=== PATIENT | female | born 1935 | race Caucasian/White ===

== ENCOUNTER 2017-08-10 18:31 | Inpatient (IN) ==
[2017-08-11] MEDS ORDERED: Naloxone 0.4 MG/ML INJ IVP PRN ×3 (01:15→21:48)
[2017-08-11] MEDS ORDERED: OXYCODONE Oral CONC 10 MG/0.5 ML ORAL.SYG SL PRN (01:15)
--- NOTE | 2017-08-11 01:36 | Internal Med History&Physical ---
Date of Encounter: 08/11/17 Time of Encounter: 00:30 Assessment and Plan (1) Left displaced femoral neck fracture Current visit: Yes Status: Acute Patient has left side femoral neck fracture due to mechanical fall. - Place patient on nothing by mouth, IV fluid - Pain management - Consul orthopedic for possible surgery (2) DVT prophylaxis Current visit: Yes Status: Acute Place patient on feet pump. Hold anticoagulation at this point for possible surgery tomorrow. Will start anticoagulation after surgery. Internal Medicine - H&P: HPI Chief complaint: Fall and left hip pain Admitted From: Home Plans for Post Hospital Care: Transfer Inp Rehab Fac History of present illness: Ms. Matthews is a 82 year old female with history of osteoporosis, transferred from [facility] emergency room for fall and left hip pain. Patient said this afternoon when she gets out of the car, she fell and had the left hip injury. Patient denies loss of consciousness. Patient denies head injury or other parts of the body pain. Patient was sent to ER and CT left hip shows left femoral neck fracture. Patient was given pain medication and transferred to our hospital for further management. Past Med Surg Social Fam HX - Past Medical History Medical history: no medical history - Past Surgical History Surgical History: hysterectomy, thyroidectomy - Social History Smoking Status: Never smoker Smokeless Tobacco Status: No Alcohol use: none Drug use: none - Family History Mother Adopted: Black: Zenia Mccarthy Age: 59 Family Member Ethnicity: Non- Living Status: Age at : 59 Cause of : Stroke Hx Family Respiratory Disorders: Yes (emphysema) Father Adopted: Black: Lucas Mccarthy Age: 77 Family Member Ethnicity: Non- Living Status: Age at : 77 Cause of : Heart attack Hx Family Cardiac Disorders: Yes (heart disease, pacemaker placement) Internal Medicine - H&P: Meds Butalbital/Acetaminophen [Butalbital-Acetaminophn 50-325] 1 tab PO Q12HR PRN [History] Furosemide [Lasix] 40 mg PO QAM PRN 08/11/17 [History] Levothyroxine [Synthroid] 50 mg PO 0630 08/11/17 [History] Memantine [Namenda] 28 mg PO 0900 08/11/17 [History] Omeprazole [PriLOSEC] 40 mg PO DAILY 08/11/17 [History] Primidone [Mysoline] 50 mg PO 0900 08/11/17 [History] 3 Allergy/AdvReac Type Severity Reaction Status Date / Time No Known Allergies Allergy Verified 08/11/17 01:18 All Systems PM: A 10-system review of systems was performed and is negative for pertinent findings except as documented above in the HPI. - Constitutional Vitals: Temp Pulse Resp BP Pulse Ox 98.3 F 75 16 115/72 98 08/10/17 23:53 08/10/17 23:53 08/10/17 23:53 08/10/17 23:53 08/10/17 23:53 General appearance: Present: A&O X 3, pleasant, no acute distress, answers questions appropriately - Head Head exam: Present: atraumatic, normocephalic - Eye Eye exam: Present: PERRL, conjuntiva pink, sclera anicteric Pupils: Present: PERRL - Neck Neck exam general surgery: Present: supple, trachea midline. Absent: lymphadenopathy - Respiratory Respiratory exam: Present: CTAB. Absent: accessory muscle use, rales, rhonchi, wheezes - Cardiovascular Cardiovascular exam: Present: RRR, +S1, +S2. Absent: diastolic murmur, gallop, rubs, systolic murmur - GI/Abdominal GI/Abdominal exam: Present: normal bowel sounds, soft, no peritoneal signs. Absent: distended, tenderness - Extremities Exam Extremities exam: Present: warm, radial pulses palpable and symmetrical. Absent : calf tenderness, cyanotic, pedal edema Additional comments: Left hip ROM limited due to pain. Other 3 limbs move well. - Neurological Exam Neurological exam: Present: CN II-XII intact, oriented X3, no focal deficits. Absent: pronater drift, facial droop, speech deficit - Skin Skin exam: Present: dry, intact Internal Med - H&P Results - EKG Data -: EKG Interpreted by Myself EKG shows normal: sinus rhythm Rate: normal
[2017-08-11] MEDS: 0.9 % Sodium Chloride 1,000 ML IVC SCH ×2 (01:59→15:21)
[2017-08-11 05:47] LABS: Basophils % 0.3 %; Eosinophils # 0.1 K/mcL (0.0-0.6); Hematocrit 37.2 % (35.3-44.9); Hemoglobin 11.9 g/dL (11.5-15.4); Immature Granulocytes % 0.3 % (0-4); Lymphocytes # 1.1 K/mcL (0.6-4.6); Lymphocytes % 14.7 %; Mean Corpuscular Hemoglobin 30.6 pg (28.0-33.3); Mean Corpuscular Volume 95.6 fL (83.0-100.0); Mean Platelet Volume 8.8 fL (9.4-12.4); Monocytes # 0.8 K/mcL (0.0-1.3); Neutrophils # 5.7 K/mcL (1.6-8.9); Platelet Count 239 K/mcL (140-400); Red Blood Count 3.89 M/mcL (3.82-4.97); Red Cell Distribution Width 14.3 % (11.5-14.5); Segmented Neutrophils % 73.7 %
[2017-08-11 05:51] LABS: INR 1.1; Prothrombin Time 11.4 Seconds (9.4-12.1)
[2017-08-11 05:55] LABS: BUN/Creatinine Ratio 16 (6-26); Blood Urea Nitrogen 15 mg/dL (8-23); Calcium 9.2 mg/dL (8.6-10.3); Carbon Dioxide 27 mEq/L (23-29); Chloride 103 mEq/L (98-107); Glucose 90 mg/dL (70-105); Osmolality,Calculated 282 (280-300); Potassium 3.9 mEq/L (3.5-5.1); Sodium 136 mEq/L (136-145); eGFR For African Americans > 60 (> 60); eGFR For Non-African Americans 59 (> 60)
--- NOTE | 2017-08-11 07:54 | Orthopedic Consult Note ---
Date of Encounter: 08/11/17 Time of Encounter: 07:51 Assessment and Plan (1) Left displaced femoral neck fracture Current Visit: Yes Status: Acute I discussed the diagnosis in detail the patient. She has a left displaced femoral neck fracture. I did discuss treatment options and recommended left hip hemiarthroplasty in order to realign and stabilize the hip to provide pain control and to help facilitate nursing care. The risks discussed included but were not limited to stiffness, bleeding, infection, blood clots, damage to neurovascular structures, tendons, ligaments, and bone. Also discussed was the risk of continued symptoms and possible need for further procedures. I did discuss the anesthesia risks including stroke, heart attack, and . I did discuss the risks of prosthetic infection, dislocation, and periprosthetic fracture. I discussed the reasonable, foreseeable postoperative course with the patient. She did wish to proceed and consent was obtained. History of Present Illness HPI: Ms. Matthews is a 82 year old female admitted to the hospitalist after being transferred from [facility]. She has a left displaced femoral neck fracture after a non-syncopal fall. This is an isolated injury. She complains of pain in the left groin. She denies any headache, neck pain, chest pain, abdominal pain, bilateral upper extremity pain, and right lower extremity pain. No numbness or tingling. No other associated signs or symptoms. Pain is worse with any movement of the left leg and better with rest. No other modifying factors. Past Med Surg Social Fam HX - Past Medical History Medical history: no medical history - Past Surgical History Surgical History: hysterectomy, thyroidectomy - Social History Smoking Status: Never smoker Smokeless Tobacco Status: No Alcohol use: none Drug use: none - Family History Mother Adopted: [place]: Zenia Mccarthy Age: 59 Family Member Ethnicity: Non- Living Status: Age at : 59 Cause of : Stroke Hx Family Respiratory Disorders: Yes (emphysema) Father Adopted: [place]: Lucas Mccarthy Age: 77 Family Member Ethnicity: Non- Living Status: Age at : 77 Cause of : Heart attack Hx Family Cardiac Disorders: Yes (heart disease, pacemaker placement) Medications and Allergies Butalbital/Acetaminophen [Butalbital-Acetaminophn 50-325] 1 tab PO Q12HR PRN [History] Furosemide [Lasix] 40 mg PO QAM PRN 08/11/17 [History] Levothyroxine [Synthroid] 50 mg PO 0630 08/11/17 [History] Memantine [Namenda] 28 mg PO 0900 08/11/17 [History] Omeprazole [PriLOSEC] 40 mg PO DAILY 08/11/17 [History] Primidone [Mysoline] 50 mg PO 0900 08/11/17 [History] 3 Allergy/AdvReac Type Severity Reaction Status Date / Time No Known Allergies Allergy Verified 08/11/17 01:18 All Systems Reviewed: The remainder of the systems were reviewed and are negative Physical Exam - Constitutional Vitals: Temp Pulse Resp BP Pulse Ox 100.0 F H 79 18 119/76 99 08/11/17 07:27 08/11/17 07:27 08/11/17 07:27 08/11/17 07:27 08/11/17 07:27 Constitutional -Vitals reviewed -The patient is well developed and well nourished. -Mood is pleasant. -The patient is well groomed. Psychiatric -The patient is fully alert and oriented x 3. Respiratory: -Respiratory effort normal Abdomen: -Soft abdomen -Non tender -Non distended: Left upper extremity: -No deformities. The overlying skin is intact. No obvious signs of acute trauma. -No tenderness to palpation throughout. -No significant pain with passive motion of the shoulder, elbow, wrist, and fingers within the limits of the bed. -Able to make an "OK" sign, cross the index and long fingers, and extend the thumb. -Sensation grossly intact to light touch throughout the median, radial, and ulnar distributions. -Radial pulse is present; Fingers have good capillary refill. Right upper extremity: -No deformities. The overlying skin is intact. No obvious signs of acute trauma. -No tenderness to palpation throughout. -No significant pain with passive motion of the shoulder, elbow, wrist, and fingers within the limits of the bed. -Able to make an "OK" sign, cross the index and long fingers, and extend the thumb. -Sensation grossly intact to light touch throughout the median, radial, and ulnar distributions. -Radial pulse is present; Fingers have good capillary refill. Left lower extremity: -The extremity is shortened and externally rotated. The overlying skin is intact. -There is tenderness in the groin region as well as the proximal lateral thigh. -I did not range the hip due to the known fracture. -No tenderness along the distal thigh, leg, ankle, foot, or toes. -Able to dorsiflex and plantarflex the ankle and toes. -Sensation is grossly intact to light touch throughout the sural, saphenous, superficial peroneal, and deep peroneal distributions. -Toes have good capillary refill. Right lower extremity: -No deformities. The overlying skin is intact. No obvious signs of acute trauma. -No tenderness to palpation throughout. -No pain with passive motion of the hip, knee, ankle, and toes within the limits of the bed. -No pain with axial loading of the thigh. -Able to dorsiflex and plantarflex the ankle and toes. -Sensation is grossly intact to light touch throughout the sural, saphenous, superficial peroneal, and deep peroneal distributions. -Toes have good capillary refill. Diagnostic Imaging: I did personally review and interpret the CT scan of the left femur which shows a displaced femoral neck fracture Results - Labs Result Diagrams: 08/11/17 04:46 08/11/17 04:46 Labs: Abnormal lab results MPV 8.8 fL (9.4-12.4) L 08/11/17 04:46 Est GFR (Non-Af Amer) 59 (> 60) L 08/11/17 04:46 H & H 08/11/17 Range/Units 04:46 Hgb 11.9 (11.5-15.4) g/dL Hct 37.2 (35.3-44.9) % All other labs normal. Consult Discharge Plan - Plan Referrals: Donovan Coronado MD [Primary Care Provider] -
[2017-08-11] MEDS ORDERED: Primidone 50 MG TABLET PO SCH (09:00)
[2017-08-11] MEDS: OXYCODONE Oral CONC 10 MG/0.5 ML ORAL.SYG SL PRN ×2 (09:34→13:27)
[2017-08-11] MEDS ORDERED: Acetaminophen/Butalbital/CaffeineTABLET PO PRN (12:51)
[2017-08-11] MEDS ORDERED: Furosemide 40 MG TABLET PO PRN (12:51)
--- NOTE | 2017-08-11 13:44 | Internal Med Progress Note ---
Date of Encounter: 08/11/17 Time of Encounter: 13:41 - Assessment and plan (1) Left displaced femoral neck fracture Current Visit: Yes Status: Acute Assessment and plan: - Left femoral neck fracture, ortho planned left hemiarthroplasty this evening. - Hx of osteoporosis, finished one course of Boniva, currently not on Vitd/ calcium replacement. will check Vit d level, May need DEXA scan as outpt. - pain control, DVT prophylaxis. - Time Spent With Patient 25 - 35 minutes - Subjective Interval history: Pt seen in the room. She has no complaints. - Constitutional Vitals: Temp Pulse Resp BP Pulse Ox 99.1 F 77 20 146/69 98 08/11/17 12:47 08/11/17 12:47 08/11/17 12:47 08/11/17 12:47 08/11/17 12:47 General appearance: Present: A&O X 3, pleasant, no acute distress, answers questions appropriately Exam: PHYSICAL EXAMINATION: GENERAL APPEARANCE: The patient is alert, oriented and in no acute distress. HEENT: Head is normocephalic. The sinuses are nontender. Pupils are equal and reactive. The nares are patent. Oropharynx clear without lesions. NECK: Supple without lymphadenopathy. HEART: Regular rate and rhythm. LUNGS: No crackles or wheezes are heard. ABDOMEN: Soft, nontender, nondistended with good bowel sounds heard. Inguinal area is normal. EXTREMITIES: left leg pain to movement.. NEUROLOGICAL: Gross nonfocal. SKIN: Warm and dry without any rash. Internal Medicine: Result - Labs CBC & Chem 7: 08/11/17 04:46 08/11/17 04:46 Labs: Short CBC 08/11/17 Range/Units 04:46 WBC 7.8 (4.3-11.1) K/mcL Hgb 11.9 (11.5-15.4) g/dL Hct 37.2 (35.3-44.9) % Plt Count 239 (140-400) K/mcL Neutrophils # 5.7 (1.6-8.9) K/mcL BMP 08/11/17 04:46 Sodium 136 Potassium 3.9 Chloride 103 Carbon Dioxide 27 BUN 15 Creatinine 0.91 Glucose 90 Calcium 9.2 - ABG Interpretation ABG results: PT/INR, D-dimer PT 11.4 Seconds (9.4-12.1) 08/11/17 04:46 - VTE Documentation of Mechanical Device: Venous foot pump, device Consult Discharge Plan - Plan Referrals: Donovan Coronado MD [Primary Care Provider] -
[2017-08-11] MEDS ORDERED: *HR* Rocuronium Bromide 50 MG/5 ML VIAL ONE (20:13)
[2017-08-11] MEDS ORDERED: Lidocaine -MPF 2% 2 ML VIAL ONE (20:13)
[2017-08-11] MEDS ORDERED: Lidocaine -MPF 4% 5 ML AMPUL ONE (20:13)
[2017-08-11] MEDS ORDERED: *HR* Propofol 200 MG/20 ML VIAL IVP ONE (20:14)
[2017-08-11] MEDS ORDERED: *HR* FentaNYL (PF) 100 MCG/2 ML VIAL ONE (20:14)
--- NOTE | 2017-08-11 20:22 | Event Note ---
Date of Encounter: 08/11/17 Time of Encounter: 20:00 Pt's Daughter Karina Morgan (also POA) expressed pt doesn't want CPR if cardiac arrest happens. Discussed with pt and her daughter Ms Karina Morgan again and confirmed that is pt's wish. DNR CCA placed.
--- NOTE | 2017-08-11 21:28 | Anesthesia Evaluation PreOp ---
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 Any Significant HX Other Medical History: Thyroid (hypo), GERD Anesthesia History: No Prior Anesthetic Complications, Past Anesthesia ( thyroidectom, hysterectomy) Alcohol Use: none Drug use: none Medications and Allergies Butalbital/Acetaminophen [Butalbital-Acetaminophn 50-325] 1 tab PO Q12HR PRN [History] Escitalopram [Lexapro] 10 mg PO DAILY 08/11/17 [History] Furosemide [Lasix] 40 mg PO QAM PRN 08/11/17 [History] Levothyroxine [Synthroid] 50 mcg PO 0630 08/11/17 [History] Memantine [Namenda] 10 mg PO BID 08/11/17 [History] Omeprazole [PriLOSEC] 40 mg PO DAILY 08/11/17 [History] Primidone [Mysoline] 50 mg PO 0900 08/11/17 [History] 3 Allergy/AdvReac Type Severity Reaction Status Date / Time No Known Allergies Allergy Verified 08/11/17 01:18 - Meds/Allergy Pre-op Review Medications Reviewed: Yes Allergies Reviewed: Yes Beta Blockers on Current Med List: No Anesthesia Results - Labs 08/11/17 04:46 08/11/17 04:46 - Imaging EKG: image reviewed (SR) Anesthesia Exam Vital Signs/O2 Sat, Most Current Temp Pulse Resp BP Pulse Ox 99.3 F 87 14 158/78 99 08/11/17 20:14 08/11/17 20:14 08/11/17 20:14 08/11/17 20:14 08/11/17 20:14 Height: 1.67m Weight: 66kg NPO (# of Hours): >8 - HEENT Pupil (Motor): Pupils equal, EOMI Mallampati: II Teeth: Missing Denture Type: Upper: Partial Oral Opening: Greater than 3 - PARTICLE BOARD SUPERVISOR LOC: Oriented PARTICLE BOARD SUPERVISOR Motor: Normal RUE, Normal LUE, Normal RLE, Normal LLE, Normal Face PARTICLE BOARD SUPERVISOR Sensory: Normal: RUE, LUE, RLE, LLE, Face - Cardiac Rhythm: Regular - Pulmonary Breath Sounds: bilateral Clear Respiratory Effort: Symmetrical Anesthesia Assess/Plan ASA Score: 2 Modified Cleveland Scale for Level of Consciousness: Cooperative, oriented, and tranquil Anesthetic Plan: General (r/b/a discussed, questions answered including DNR-CC arrest status, pt will like to avoid having chest compressions if possible in case of cardiac arrest) Monitoring Plan: Standard Monitors Recovery Plan: PACU
[2017-08-11] MEDS ORDERED: Acetaminophen IV 1,000 MG/100 ML INFUS..BTL ONE (21:45)
[2017-08-11] MEDS ORDERED: *HR* OxyCODONE Immed Rel 5 MG TABLET PO PRN (21:48)
[2017-08-11] MEDS ORDERED: Ondansetron 4 MG/2 ML VIAL IVP ONE (21:48)
[2017-08-11] MEDS ORDERED: Ringers Solution, Lactated 1,000 ML IVC SCH (22:00)
[2017-08-11] MEDS ORDERED: *HR* PHENYLEPHRINE 1,000 MCG/10 ML SYRINGE IVP ONE (22:25)
[2017-08-11] MEDS ORDERED: Dexamethasone 4 MG/ML VIAL ONE (22:26)
[2017-08-11] MEDS ORDERED: Ondansetron 4 MG/2 ML VIAL ONE (22:26)
[2017-08-11] MEDS ORDERED: Neostigmine Methylsulfate 3 MG/3 ML SYRINGE ONE (22:27)
--- NOTE | 2017-08-12 00:05 | Operative Note ---
Date of procedure: 08/12/17 Pre-op diagnosis: Left hip femoral neck fracture, displaced Post-op diagnosis: same Procedure: Left hip hemiarthroplasty Implants: Biomet echo system Anesthesia: GETA Surgeon: Shen Qureshi Was there an kindergarten assistant present: No Estimated blood loss (cc): 200 Specimen: Sent to pathology Condition: stable Disposition: PACU Procedure in Detail: The patient received IV antibiotics in the holding area. She was brought to the operating room, sign in was performed. The patient underwent general anesthesia on the hospital bed. She was then transferred to the OR table in supine position. The patient was positioned in the right lateral decubitus position, supported by pelvic supports. Bony prominences of the right lower extremity were well padded. The left lower extremity was then prepped and draped in usual sterile fashion. A timeout was performed. The level of the greater trochanter was palpated, a 10-12 cm curvilinear posterior incision was made, followed by Bovie dissection. The hip abductor was sharply split in line with its fibers with a curved Roman scissors, incising the fascia over the gluteus prabhakar also. The Charnley retractors were then positioned, making sure all not to go too deeply, to protect the sciatic nerve. The bursa over the greater trochanter was excised with Bovie electrocautery. The left hip was then internally rotated, putting the short external rotators on stretch. These were taken down from the insertion point with the Bovie cautery, starting from less of a trochanter and going approximately to the femoral neck. The capsule along the posterior femoral neck and head was then T' ed, giving exposure to the fractured femoral head/neck. The head was then attempted to be removed with a power corkscrew. I had difficulty removing the head. The head started fragmenting. Eventually a small skid was placed in the acetabulum, pushing the head followed and removing it. The head was measured and a size 45 mm diameter was chosen. The acetabulum was washed out of any bone fragments, and a trial head was placed giving a good fit. Next, the exposed fractured femoral neck was cleaned up with a rongeur, a spreader box operator was then used to remove the lateral bone. The canal finder was then inserted. We then started broaching with a press-fit broaches from the [employer] echo tray. Starting with a press-fit 7, and moving up to a press-fit 8, keeping the appropriate anteversion. I continued broaching up to a press-fit 11 The trial stem was well fixed with no toggling. The broach was then removed. The canal was irrigated out and suctioned. The [employer] Echo press-fit stem was then opened, using a lateralized 130 degree neck angle and a size 11 pressfit stem, the implant was tapped in place, making sure to keep the correct anteversion. Once well positioned, we trialed with a 45 mm diameter trial head, and a neutral neck length. Stability was checked along with leg length, it was felt that the leg length was slightly short, and not very stable. I then trialed with a +3 mm neck length. The leg lengths felt equal, the patient had good extension of the left lower extremity, is able to flex the hip, adduct, and internally rotated up to 60 degrees before the hip started subluxing out. The trial components removed. The acetabulum was copiously irrigated with normal saline once again making sure it was well cleaned out. Next the 45 mm unipolar head was opened with a +3 mm neck length. This assembled and tapped in place. The hip was reduced, and stability was checked once again. We had good stability. The capsule was then closed with # 2 FiberWire figure of 8 sutures. The leg was placed on Roman stand, and the short external rotators were reattached to the bone using the FiberWire. The tensor fascia along with the gluteus fascia was closed with FiberWire [id number] sutures and a #1 Vicryl running suture proximally. Once again irrigating the wound with pulse lavage. The deep fat layer was closed with 0 Vicryl, subcutaneous tissues with 2-0 Vicryl simple sutures, and finally the skin was closed with lobo. Sterile dressings were applied. A hip abduction wedge was in place between the patient' s legs. She was then rolled over into supine position and transferred back onto the hospital bed where she was extubated and taken to the recovery room in stable condition.
--- NOTE | 2017-08-12 00:38 | Anesthesia Evaluation Post Op ---
Date of Encounter: 08/12/17 Time of Encounter: 00:38 - Vital Signs Vital Signs: Vital Signs/O2 Sat, Most Current Temp Pulse Resp BP Pulse Ox 98.4 F 85 16 116/65 98 08/12/17 00:14 08/12/17 00:34 08/12/17 00:34 08/12/17 00:34 08/12/17 00:34 - Lungs Lungs: Clear Ascult./Percussion - Airway Airway: Non-obstructed - Cardiovascular Regular Rate - Mental Status Mental Status: Alert & Oriented, Answers Appropriately - Pain Pain Scale: 0 Pain Scale used: Numeric (1 - 10) - Nausea Vomiting Nausea Vomiting: Not Present - Hydration Hydration: Ice chips, Patel catheter - Discharge PostOp Status: Transfer Patient to floor
[2017-08-12] MEDS ORDERED: Ondansetron 4 MG/2 ML VIAL IVP PRN (01:10)
[2017-08-12] MEDS ORDERED: Acetaminophen/Butalbital/CaffeineTABLET PO PRN (01:10)
[2017-08-12] MEDS ORDERED: Furosemide 40 MG TABLET PO PRN (01:10)
[2017-08-12] MEDS ORDERED: Sennosides 8.6 MG TABLET PO PRN (01:10)
[2017-08-12] MEDS ORDERED: MOM Conc 10 ML UD.LIQ PO PRN (01:10)
[2017-08-12] MEDS ORDERED: 0.9 % Sodium Chloride 1,000 ML IVC SCH (01:10)
[2017-08-12] MEDS ORDERED: Temazepam 15 MG CAPSULE PO PRN (01:10)
[2017-08-12] MEDS: CeFAZolin Premix DUPLEX 2,000 MG/50 ML BAG IVPB SCH ×2 (01:55→10:11)
[2017-08-12 06:23] LABS: Hematocrit 32.8 % (35.3-44.9); Hemoglobin 10.5 g/dL (11.5-15.4); Mean Corpuscular Volume 96.8 fL (83.0-100.0); Platelet Count 192 K/mcL (140-400); Red Blood Count 3.39 M/mcL (3.82-4.97); Red Cell Distribution Width 14.2 % (11.5-14.5)
[2017-08-12 06:35] LABS: BUN/Creatinine Ratio 17 (6-26); Blood Urea Nitrogen 14 mg/dL (8-23); Calcium 8.3 mg/dL (8.6-10.3); Carbon Dioxide 25 mEq/L (23-29); Chloride 106 mEq/L (98-107); Glucose 124 mg/dL (70-105); Osmolality,Calculated 286 (280-300); Potassium 4.3 mEq/L (3.5-5.1); Sodium 137 mEq/L (136-145); eGFR For African Americans > 60 (> 60); eGFR For Non-African Americans > 60 (> 60)
[2017-08-12] MEDS: Ascorbic Acid 500 MG TABLET PO SCH ×2 (10:11→16:16)
[2017-08-12] MEDS: Multivit/Ca/Min/Fe/FA 1 TAB TABLET PO SCH (10:11)
[2017-08-12] MEDS: Primidone 50 MG TABLET PO SCH (10:11)
--- NOTE | 2017-08-12 13:13 | Internal Med Progress Note ---
Date of Encounter: 08/12/17 Time of Encounter: 13:12 - Assessment and plan (1) Left displaced femoral neck fracture Current Visit: Yes Status: Acute Assessment and plan: - Left femoral neck fracture, s/p hemiarthroplasty 08/11/2017. - doing well, walked with walker in room. - Hx of osteoporosis, finished one course of Boniva, currently not on Vitd/ calcium replacement. pending Vit d level, May need DEXA scan as outpt. - pain control, DVT prophylaxis. advance diet as tolerate. - plan dc to rehab for 4-6 weeks per ortho, likely next Monday. - Time Spent With Patient 25 - 35 minutes - Subjective Interval history: Pt reported that she has been out of bed and walked in the room with walker. She feels much better than yesterday. No fever, chills, or night sweats. No swelling legs or sob. - Constitutional Vitals: Temp Pulse Resp BP Pulse Ox 98.0 F 79 12 105/57 100 08/12/17 07:28 08/12/17 07:28 08/12/17 07:28 08/12/17 07:28 08/12/17 07:28 General appearance: Present: A&O X 3, pleasant, no acute distress, answers questions appropriately Exam: PHYSICAL EXAMINATION: GENERAL APPEARANCE: The patient is alert, oriented and in no acute distress. HEENT: Head is normocephalic. The sinuses are nontender. Pupils are equal and reactive. The nares are patent. Oropharynx clear without lesions. NECK: Supple without lymphadenopathy. HEART: Regular rate and rhythm. LUNGS: No crackles or wheezes are heard. ABDOMEN: Soft, nontender, nondistended with good bowel sounds heard. Inguinal area is normal. EXTREMITIES: left leg surgical dressing, dry and intact. NEUROLOGICAL: Gross nonfocal. SKIN: Warm and dry without any rash. Internal Medicine: Result - Labs CBC & Chem 7: 08/12/17 05:46 08/12/17 05:46 Labs: Short CBC 08/12/17 Range/Units 05:46 WBC 10.9 (4.3-11.1) K/mcL Hgb 10.5 L (11.5-15.4) g/dL Hct 32.8 L (35.3-44.9) % Plt Count 192 (140-400) K/mcL BMP 08/12/17 05:46 Sodium 137 Potassium 4.3 Chloride 106 Carbon Dioxide 25 BUN 14 Creatinine 0.82 Glucose 124 H Calcium 8.3 L - ABG Interpretation ABG results: PT/INR, D-dimer PT 11.4 Seconds (9.4-12.1) 08/11/17 04:46 - Impressions Impressions Hip X-Ray 08/12/17 01:10 IMPRESSION: Status post left hip arthroplasty with possible tiny remaining fracture fragment medial to the arthroplasty device neck. D/ / Dk Pickens MD / Dk Pickens MD Interpreting Provider: Dk Pickens MD - VTE Documentation of Mechanical Device: Venous foot pump, device Consult Discharge Plan - Plan Referrals: Donovan Coronado MD [Primary Care Provider] -
[2017-08-12] MEDS: OXYCODONE Oral CONC 10 MG/0.5 ML ORAL.SYG SL PRN (14:43)
--- NOTE | 2017-08-12 16:11 | Orthopedics Progress Note ---
Date of Encounter: 08/12/17 Time of Encounter: 16:09 Subjective Principal diagnosis: Left hip fracture Interval history: Patient is comfortable sitting up in a chair She is alert and oriented Left hip: Dressings are clean dry intact Bilateral calves are soft although mildly tender diffusely She is neurovascular intact distally X-rays of the left hip show the implant is well positioned Assessment: Postoperative day #1, stable Plan: Continue OT/PT weightbearing as tolerated Continue DVT prophylaxis DC Patel Discharge planning Objective Vital signs: Vital Signs Temp Pulse Resp BP Pulse Ox 08/12/17 13:14 98.1 F 90 16 102/51 96 08/12/17 07:28 98.0 F 79 12 105/57 100 08/12/17 03:55 98.5 F 90 12 92/58 100 08/12/17 03:02 97.8 F 79 16 91/58 100 08/12/17 02:03 97.5 F L 79 16 93/57 99 08/12/17 01:31 97.5 F L 80 16 95/48 99 08/12/17 00:53 98.8 F 79 14 101/53 97 08/12/17 00:50 98 08/12/17 00:44 98.4 F 83 16 116/52 98 08/12/17 00:34 85 16 116/65 98 08/12/17 00:24 86 14 126/59 97 08/12/17 00:14 98.4 F 97 14 137/56 92 08/11/17 20:14 99.3 F 87 14 158/78 99 Intake and Output 08/12/17 08/12/17 08/12/17 07:59 15:59 23:59 Intake Total 50 / 50 290 / 290 Output Total 400 / 400 Balance -350 / -350 290 / 290 Intake: IV Fluids 50 / 50 50 / 50 Ancef Premix DUPLEX 2,000 mg In 50 / 50 50 / 50 50 ml @ 100 mls/hr IVPB Q8H [facility] Rx#:[id number] Oral 240 / 240 Output: Estimated Blood Loss 200 / 200 Urine Amount (Catheter) 200 / 200 Other: Meal Breakfast Percent of Meal Consumed 20% Weight 66.65 kg Patient Weight 08/12/17 23:59 Weight 66.65 kg - Labs CBC & BMP: 08/12/17 05:46 08/12/17 05:46 Labs: Abnormal lab results RBC 3.39 M/mcL (3.82-4.97) L 08/12/17 05:46 Hgb 10.5 g/dL (11.5-15.4) L 08/12/17 05:46 Hct 32.8 % (35.3-44.9) L 08/12/17 05:46 MPV 9.0 fL (9.4-12.4) L 08/12/17 05:46 Glucose 124 mg/dL (70-105) H 08/12/17 05:46 Calcium 8.3 mg/dL (8.6-10.3) L 08/12/17 05:46 - VTE Documentation of Mechanical Device: Venous foot pump, device Consult Discharge Plan - Plan Referrals: Donovan Coronado MD [Primary Care Provider] -
[2017-08-12] MEDS: *HR* Enoxaparin 30 MG/0.3 ML SYRINGE SQ SCH (20:15)
[2017-08-13] MEDS: OXYCODONE Oral CONC 10 MG/0.5 ML ORAL.SYG SL PRN ×3 (00:19→18:06)
[2017-08-13 06:04] LABS: Basophils % 0.4 %; Eosinophils # 0.1 K/mcL (0.0-0.6); Eosinophils % 0.8 %; Hematocrit 28.9 % (35.3-44.9); Hemoglobin 9.5 g/dL (11.5-15.4); Immature Granulocytes % 0.2 % (0-4); Lymphocytes # 0.8 K/mcL (0.6-4.6); Lymphocytes % 7.6 %; Mean Corpuscular HGB Conc 32.9 g/dL (31.6-35.5); Mean Corpuscular Hemoglobin 31.6 pg (28.0-33.3); Mean Platelet Volume 9.1 fL (9.4-12.4); Monocytes % 9.8 %; Neutrophils # 8.3 K/mcL (1.6-8.9); Platelet Count 207 K/mcL (140-400); Red Blood Count 3.01 M/mcL (3.82-4.97); Red Cell Distribution Width 14.5 % (11.5-14.5); Segmented Neutrophils % 81.2 %
[2017-08-13 06:29] LABS: BUN/Creatinine Ratio 21 (6-26); Blood Urea Nitrogen 21 mg/dL (8-23); Calcium 8.5 mg/dL (8.6-10.3); Carbon Dioxide 25 mEq/L (23-29); Chloride 104 mEq/L (98-107); Glucose 118 mg/dL (70-105); Osmolality,Calculated 284 (280-300); Potassium 4.2 mEq/L (3.5-5.1); Sodium 135 mEq/L (136-145); eGFR For African Americans > 60 (> 60); eGFR For Non-African Americans 52 (> 60)
[2017-08-13] MEDS: *HR* Enoxaparin 30 MG/0.3 ML SYRINGE SQ SCH ×2 (06:39→18:12)
[2017-08-13] MEDS: Primidone 50 MG TABLET PO SCH (07:56)
[2017-08-13] MEDS: Multivit/Ca/Min/Fe/FA 1 TAB TABLET PO SCH (07:56)
[2017-08-13] MEDS: Ascorbic Acid 500 MG TABLET PO SCH ×2 (07:56→18:05)
--- NOTE | 2017-08-13 13:02 | Orthopedics Progress Note ---
Date of Encounter: 08/13/17 Time of Encounter: 13:01 Subjective Principal diagnosis: Left hip fracture Interval history: Patient is comfortable sitting up in a chair She is alert and oriented Left hip: Dressings are clean dry intact Bilateral calves are soft although mildly tender diffusely She is neurovascular intact distally X-rays of the left hip show the implant is well positioned Assessment: Postoperative day #2, stable Plan: Continue OT/PT weightbearing as tolerated Continue DVT prophylaxis Discharge planning Objective Vital signs: Vital Signs Temp Pulse Resp BP Pulse Ox 08/13/17 10:58 98.7 F 94 16 112/70 100 08/13/17 07:29 98.2 F 94 12 97/62 96 08/13/17 03:57 98.4 F 86 16 103/63 92 08/12/17 23:08 98.4 F 96 16 106/62 98 08/12/17 19:12 97.7 F 70 17 119/72 96 08/12/17 16:07 98.2 F 72 14 104/65 98 08/12/17 13:14 98.1 F 90 16 102/51 96 Intake and Output 08/12/17 08/13/17 08/13/17 23:59 07:59 15:59 Intake Total 120 / 120 380 / 380 Output Total 0 / 0 Balance 120 / 120 0 / 0 380 / 380 Intake: Oral 120 / 120 380 / 380 Output: Straight Cath 0 / 0 Other: Meal Dinner Breakfast Percent of Meal Consumed 50% 40% Weight 70.6 kg Patient Weight 08/13/17 23:59 Weight 70.6 kg - Labs CBC & BMP: 08/13/17 05:10 08/13/17 05:10 Labs: Abnormal lab results RBC 3.01 M/mcL (3.82-4.97) L 08/13/17 05:10 Hgb 9.5 g/dL (11.5-15.4) L 08/13/17 05:10 Hct 28.9 % (35.3-44.9) L 08/13/17 05:10 MPV 9.1 fL (9.4-12.4) L 08/13/17 05:10 Sodium 135 mEq/L (136-145) L 08/13/17 05:10 Est GFR (Non-Af Amer) 52 (> 60) L 08/13/17 05:10 Glucose 118 mg/dL (70-105) H 08/13/17 05:10 Calcium 8.5 mg/dL (8.6-10.3) L 08/13/17 05:10 - VTE Documentation of Mechanical Device: Venous foot pump, device Consult Discharge Plan - Plan Referrals: Donovan Coronado MD [Primary Care Provider] -
--- NOTE | 2017-08-13 16:52 | Internal Med Progress Note ---
Date of Encounter: 08/13/17 Time of Encounter: 11:00 - Assessment and plan (1) Left displaced femoral neck fracture Current Visit: Yes Status: Acute Assessment and plan: Patient comfortable with this morning and pain controlled status post left hip hemiarthroplasty postop day 2 Hemoglobin stable Recommendations for placement at custodial facility for strengthening rehabilitation (2) Iron deficiency anemia Current Visit: Yes Status: Acute Assessment and plan: Continue iron supplementation Qualifiers: Iron deficiency anemia type: unspecified iron deficiency Qualified Code(s) : D50.9 - Iron deficiency anemia, unspecified (3) Hypothyroid Current Visit: Yes Status: Acute Assessment and plan: Continue home dose of levothyroxine Qualifiers: Hypothyroidism type: unspecified Qualified Code(s): E03.9 - Hypothyroidism , unspecified (4) Mood disorder Current Visit: Yes Status: Acute Assessment and plan: Continue home dose of SSRI (5) DVT prophylaxis Current Visit: Yes Status: Acute Assessment and plan: Lovenox subcutaneous - Subjective Interval history: Patient comfortable with this morning and pain controlled status post left hip hemiarthroplasty postop day 2 - Constitutional Vitals: Temp Pulse Resp BP Pulse Ox 99.8 F H 92 18 102/55 97 08/13/17 15:57 08/13/17 15:57 08/13/17 15:57 08/13/17 15:57 08/13/17 15:57 General appearance: Present: A&O X 3, pleasant, no acute distress, answers questions appropriately - Respiratory Respiratory exam: Present: CTAB. Absent: accessory muscle use, rales, rhonchi, wheezes - Cardiovascular Cardiovascular exam: Present: RRR, +S1, +S2. Absent: diastolic murmur, gallop, rubs, systolic murmur Internal Medicine: Result - Labs CBC & Chem 7: 08/13/17 05:10 08/13/17 05:10 Labs: Short CBC 08/13/17 Range/Units 05:10 WBC 10.2 (4.3-11.1) K/mcL Hgb 9.5 L (11.5-15.4) g/dL Hct 28.9 L (35.3-44.9) % Plt Count 207 (140-400) K/mcL Neutrophils # 8.3 (1.6-8.9) K/mcL BMP 08/13/17 05:10 Sodium 135 L Potassium 4.2 Chloride 104 Carbon Dioxide 25 BUN 21 Creatinine 1.01 Glucose 118 H Calcium 8.5 L - ABG Interpretation ABG results: PT/INR, D-dimer PT 11.4 Seconds (9.4-12.1) 08/11/17 04:46 - VTE Documentation of Mechanical Device: Venous foot pump, device Consult Discharge Plan - Plan Referrals: Donovan Coronado MD [Primary Care Provider] -
[2017-08-14] MEDS: *HR* Enoxaparin 30 MG/0.3 ML SYRINGE SQ SCH ×2 (05:14→18:02)
[2017-08-14] MEDS: Primidone 50 MG TABLET PO SCH (09:06)
[2017-08-14] MEDS: Ascorbic Acid 500 MG TABLET PO SCH ×2 (09:06→18:02)
[2017-08-14] MEDS: Multivit/Ca/Min/Fe/FA 1 TAB TABLET PO SCH (09:06)
[2017-08-14] MEDS: OXYCODONE Oral CONC 10 MG/0.5 ML ORAL.SYG SL PRN (12:54)
[2017-08-14 13:39] LABS: Hemoglobin 8.9 g/dL (11.5-15.4); Mean Corpuscular HGB Conc 31.8 g/dL (31.6-35.5); Mean Corpuscular Volume 97.6 fL (83.0-100.0); Mean Platelet Volume 8.9 fL (9.4-12.4); Platelet Count 222 K/mcL (140-400); Red Blood Count 2.87 M/mcL (3.82-4.97); Red Cell Distribution Width 14.5 % (11.5-14.5)
[2017-08-14 14:33] LABS: Bilirubin,Urine Negative (Negative); Clarity,Urine Hazy (Clear); Color,Urine Dark Yellow (Yellow); Glucose,Urine (UA) Normal (Normal); Ketones,Urine 15 mg/dL (Negative)
[2017-08-14 14:34] LABS: Blood,Urine Negative (Negative); Leukocyte Esterase,Urine Moderate (Negative); Nitrite,Urine Negative (Negative); Protein,Urine 100 mg/dL (Neg-Trace); Specific Gravity,Urine 1.025 (1.010-1.025); Urobilinogen,Urine Normal (Normal)
[2017-08-14 14:35] LABS: WBC,Urine 15-30 per hpf (0-3)
[2017-08-14 14:36] LABS: Bacteria,Urine Few per hpf (None-Few); RBC,Urine 0-3 per hpf (0-3); Renal Epithelial Cells,Urine Few per hpf (None-Few); Squamous Epithelial Cell,Urine Moderate per lpf (None-Few)
--- NOTE | 2017-08-14 17:17 | Internal Med Progress Note ---
Date of Encounter: 08/14/17 Time of Encounter: 11:00 - Assessment and plan (1) Left displaced femoral neck fracture Current Visit: Yes Status: Acute Assessment and plan: Patient comfortable with this morning and pain controlled status post left hip hemiarthroplasty postop day 2 Hemoglobin stable Recommendations for placement at residential facility for strengthening rehabilitation (2) Iron deficiency anemia Current Visit: Yes Status: Acute Assessment and plan: Continue iron supplementation Qualifiers: Iron deficiency anemia type: unspecified iron deficiency Qualified Code(s) : D50.9 - Iron deficiency anemia, unspecified (3) Hypothyroid Current Visit: Yes Status: Acute Assessment and plan: Continue home dose of levothyroxine Qualifiers: Hypothyroidism type: unspecified Qualified Code(s): E03.9 - Hypothyroidism , unspecified (4) Mood disorder Current Visit: Yes Status: Acute Assessment and plan: Continue home dose of SSRI (5) DVT prophylaxis Current Visit: Yes Status: Acute Assessment and plan: Lovenox subcutaneous - Subjective Interval history: Patient is a 82-year-old female with displaced left hip femur on neck fracture that is post mechanical fall. Patient with left hip hemiarthroplasty on 08/12/17 Awaiting ECF placement Patient did have a low-grade temperature earlier this morning at 100.2; suspect secondary to atelectasis - Constitutional Vitals: Temp Pulse Resp BP Pulse Ox 99.6 F 98 18 110/73 97 08/14/17 14:21 08/14/17 14:21 08/14/17 14:21 08/14/17 14:21 08/14/17 14:21 General appearance: Present: A&O X 3, pleasant, no acute distress, answers questions appropriately - Respiratory Respiratory exam: Present: CTAB. Absent: accessory muscle use, rales, rhonchi, wheezes - Cardiovascular Cardiovascular exam: Present: RRR, +S1, +S2. Absent: diastolic murmur, gallop, rubs, systolic murmur Internal Medicine: Result - Labs CBC & Chem 7: 08/14/17 13:25 08/13/17 05:10 Labs: Short CBC 08/14/17 Range/Units 13:25 WBC 11.0 (4.3-11.1) K/mcL Hgb 8.9 L (11.5-15.4) g/dL Hct 28.0 L (35.3-44.9) % Plt Count 222 (140-400) K/mcL Urine 08/14/17 Range/Units 13:50 Urine Color Dark Yellow (Yellow) Urine Clarity Hazy A (Clear) Urine pH 6.0 (5.0-8.0) pH Units Ur Specific [place] 1.025 (1.010-1.025) Urine Protein 100 H (Neg-Trace) mg/dL Urine Glucose (UA) Normal (Normal) mg/dL - ABG Interpretation ABG results: PT/INR, D-dimer PT 11.4 Seconds (9.4-12.1) 08/11/17 04:46 - Impressions Impressions Chest X-Ray 08/14/17 12:59 IMPRESSION: No acute cardiopulmonary process. D/ / 08/14/2017 15:28:11 Subhash Medrano MD / [facility] Interpreting Provider: Subhash Medrano MD - VTE Documentation of Mechanical Device: Intermittent pneumatic compression device Consult Discharge Plan - Plan Referrals: Donovan Coronado MD [Primary Care Provider] -
--- NOTE | 2017-08-14 17:59 | Orthopedics Progress Note ---
Date of Encounter: 08/14/17 Time of Encounter: 14:10 - Assessment and Plan (1) Left displaced femoral neck fracture Current Visit: Yes Status: Acute POD#2 s/p Left hip hemiarthroplasty 08/12/17 Continue with PT/OT, WBAT. Continue pain control per hospitalist. Ice to hip as needed. max Temperature 100.2 today, hospitalist monitoring. Awaiting placement to ECF. Will require DVT prophylaxis - lovenox for 2 weeks then aspirin for 4 weeks Will follow up with Shabana Valenzuela PA-C in [place] office at [facility]2. Subjective Principal diagnosis: POD#2 s/p Left hip hemiarthroplasty 3 Interval history: Patient doing well but tired. Just finished PT. She states it went well but wore her out. Pain well controlled. Did develop a slight fever today but otherwise states she feels ok. Denies any new concerns at this time. Objective Vital signs: Vital Signs Temp Pulse Resp BP Pulse Ox 08/14/17 14:21 99.6 F 98 18 110/73 97 08/14/17 10:54 100.2 F H 68 16 119/56 100 08/14/17 06:32 98.7 F 93 16 105/67 92 08/14/17 04:04 87 12 141/77 96 08/14/17 00:46 95 12 142/61 96 08/13/17 20:00 100.1 F H 96 14 113/69 98 Intake and Output 08/14/17 08/14/17 08/14/17 07:59 15:59 23:59 Output Total 50 / 50 Balance -50 / -50 Output: Urine 50 / 50 Incision: clean and dry (dressings to left hip c/d/i with no minimal drainage noted through dressings. No surrounding erythema. mild diffuse tenderness to calf palpation. good dorsiflexion of foot, grossly NV intact distally. ) - Labs CBC & BMP: 08/14/17 13:25 08/13/17 05:10 Labs: Abnormal lab results RBC 2.87 M/mcL (3.82-4.97) L 08/14/17 13:25 Hgb 8.9 g/dL (11.5-15.4) L 08/14/17 13:25 Hct 28.0 % (35.3-44.9) L 08/14/17 13:25 MPV 8.9 fL (9.4-12.4) L 08/14/17 13:25 Sodium 135 mEq/L (136-145) L 08/13/17 05:10 Est GFR (Non-Af Amer) 52 (> 60) L 08/13/17 05:10 Glucose 118 mg/dL (70-105) H 08/13/17 05:10 Calcium 8.5 mg/dL (8.6-10.3) L 08/13/17 05:10 25-OH Vitamin D Total 21 ng/mL (30-80) L 08/11/17 14:29 Urine Clarity Hazy (Clear) A 08/14/17 13:50 Urine Protein 100 mg/dL (Neg-Trace) H 08/14/17 13:50 Urine Ketones 15 mg/dL (Negative) H 08/14/17 13:50 Ur Leukocyte Esterase Moderate (Negative) H 08/14/17 13:50 Urine Microscopic WBC 15-30 per hpf (0-3) H 08/14/17 13:50 Ur Squamous Epith Cells Moderate per lpf (None-Few) H 08/14/17 13:50 Ur Culture Indicated? YES (NO) A 08/14/17 13:50 - VTE Documentation of Mechanical Device: Intermittent pneumatic compression device Consult Discharge Plan - Plan Referrals: Donovan Coronado MD [Primary Care Provider] -
[2017-08-15] MEDS: Multivit/Ca/Min/Fe/FA 1 TAB TABLET PO SCH (07:45)
[2017-08-15] MEDS: Ascorbic Acid 500 MG TABLET PO SCH ×2 (07:46→17:06)
[2017-08-15] MEDS: Primidone 50 MG TABLET PO SCH (07:46)
[2017-08-15] MEDS: *HR* Enoxaparin 30 MG/0.3 ML SYRINGE SQ SCH ×2 (08:57→18:42)
[2017-08-15] MEDS ORDERED: cefTRIAXone 1,000 MG in Water for inj. (sterile) 20 ML 10 ML IVP SCH (13:00)
[2017-08-15] MEDS: OXYCODONE Oral CONC 10 MG/0.5 ML ORAL.SYG SL PRN ×2 (13:51→21:24)
--- NOTE | 2017-08-15 14:54 | Orthopedics Progress Note ---
Date of Encounter: 08/15/17 Time of Encounter: 12:45 - Assessment and Plan (1) Left displaced femoral neck fracture Current Visit: Yes Status: Acute POD#3 s/p Left hip hemiarthroplasty 08/12/17 Continue with PT/OT, WBAT. Continue pain control per hospitalist. Ice to hip as needed. Continue hip precautions No fevers today. Awaiting placement to ECF. Will require DVT prophylaxis - lovenox for 2 weeks then aspirin for 4 weeks Will follow up with Shabana Valenzuela PA-C in [place] office on 08/28/17 at 9am Subjective Principal diagnosis: POD#3 s/p Left hip hemiarthroplasty 08/12/17 Interval history: Patient doing well, more alert today. She continues to participate in therapy. Pain well controlled. States she has had difficulty with urinating and hospitalist running UA. Objective Vital signs: Vital Signs Temp Pulse Resp BP Pulse Ox 08/15/17 10:53 99.1 F 76 16 119/64 93 08/15/17 06:26 98.7 F 106 18 110/71 93 08/15/17 03:45 99.2 F 100 14 102/64 95 08/15/17 00:40 99.2 F 90 16 110/72 95 08/14/17 18:46 99.3 F 96 18 104/67 95 Intake and Output 08/14/17 08/15/17 08/15/17 23:59 07:59 15:59 Intake Total 0 / 0 0 / 0 600 / 600 Output Total 0 / 0 100 / 100 Balance 0 / 0 -100 / -100 600 / 600 Intake: Oral 0 / 0 0 / 0 600 / 600 Output: Urine 0 / 0 100 / 100 Other: Meal Lunch Percent of Meal Consumed 50% Weight 70.18 kg Patient Weight 08/15/17 23:59 Weight 70.18 kg Incision: clean and dry (dressings to left hip are c/d/i with no visible drainage or surrounding erythema, no calf tenderness to palpation, good dorsiflexion of fuut, grossly NV intact distally) - Labs CBC & BMP: 08/14/17 13:25 08/13/17 05:10 Labs: Abnormal lab results RBC 2.87 M/mcL (3.82-4.97) L 08/14/17 13:25 Hgb 8.9 g/dL (11.5-15.4) L 08/14/17 13:25 Hct 28.0 % (35.3-44.9) L 08/14/17 13:25 MPV 8.9 fL (9.4-12.4) L 08/14/17 13:25 Sodium 135 mEq/L (136-145) L 08/13/17 05:10 Est GFR (Non-Af Amer) 52 (> 60) L 08/13/17 05:10 Glucose 118 mg/dL (70-105) H 08/13/17 05:10 Calcium 8.5 mg/dL (8.6-10.3) L 08/13/17 05:10 25-OH Vitamin D Total 21 ng/mL (30-80) L 08/11/17 14:29 Urine Clarity Hazy (Clear) A 08/14/17 13:50 Urine Protein 100 mg/dL (Neg-Trace) H 08/14/17 13:50 Urine Ketones 15 mg/dL (Negative) H 08/14/17 13:50 Ur Leukocyte Esterase Moderate (Negative) H 08/14/17 13:50 Urine Microscopic WBC 15-30 per hpf (0-3) H 08/14/17 13:50 Ur Squamous Epith Cells Moderate per lpf (None-Few) H 08/14/17 13:50 Ur Culture Indicated? YES (NO) A 08/14/17 13:50 - VTE Documentation of Mechanical Device: Venous foot pump, device Consult Discharge Plan - Plan Referrals: Donovan Coronado MD [Primary Care Provider] -
--- NOTE | 2017-08-15 16:33 | Internal Med Progress Note ---
Date of Encounter: 08/15/17 Time of Encounter: 12:40 - Assessment and plan (1) Left displaced femoral neck fracture Current Visit: Yes Status: Acute Assessment and plan: Orthopedic surgery on board, status post left hip hemiarthroplasty, postoperative day 3. Local wound care per orthopedics recommendation. Continue DVT prophylaxis with subcutaneous Lovenox. Noted to have a 3 g drop in hemoglobin since admission, still greater than 8.5. Continue to monitor closely. Physical therapy recommendations noted, clinical social work aide on board for possible placement at inpatient rehabilitation. Noted to have low grade fever, likely due to atelectasis; continue incentive spirometry; UA suggestive of UTI, start IV Rocephin and f/up urine culture; (2) Hypothyroid Current Visit: Yes Status: Chronic Assessment and plan: resume Levothyroxine; Qualifiers: Hypothyroidism type: unspecified Qualified Code(s): E03.9 - Hypothyroidism , unspecified (3) Iron deficiency anemia Current Visit: Yes Status: Chronic Assessment and plan: ferrous sulfate supplements; Qualifiers: Iron deficiency anemia type: unspecified iron deficiency Qualified Code(s) : D50.9 - Iron deficiency anemia, unspecified (4) Mood disorder Current Visit: Yes Status: Chronic - Subjective Interval history: Reports intermittent left hip pain; patient does not request for pain meds per family, as she does not like using her all button and bother people; improved fever; no nausea, diarrhea; per RN, has urinary retention; - Constitutional Vitals: Temp Pulse Resp BP Pulse Ox 98.1 F 87 18 112/74 97 08/15/17 15:15 08/15/17 15:15 08/15/17 15:15 08/15/17 15:15 08/15/17 15:15 General appearance: Present: A&O X 3, pleasant, answers questions appropriately - Respiratory Respiratory exam: Present: CTAB. Absent: accessory muscle use, rales, rhonchi, wheezes - Cardiovascular Cardiovascular exam: Present: RRR, +S1, +S2. Absent: diastolic murmur, gallop, rubs, systolic murmur - GI/Abdominal GI/Abdominal exam: Present: normal bowel sounds, soft, no peritoneal signs. Absent: distended, tenderness - Extremities Exam Extremities exam: Present: full ROM (restricted in left hip), warm, radial pulses palpable and symmetrical. Absent: calf tenderness, cyanotic, pedal edema - Neurological Exam Neurological exam: Present: CN II-XII intact, oriented X3, no focal deficits. Absent: pronater drift, facial droop, speech deficit Internal Medicine: Result - Labs CBC & Chem 7: 08/14/17 13:25 08/13/17 05:10 - ABG Interpretation ABG results: PT/INR, D-dimer PT 11.4 Seconds (9.4-12.1) 08/11/17 04:46 - VTE Documentation of Mechanical Device: Venous foot pump, device Consult Discharge Plan - Plan Referrals: Donovan Coronado MD [Primary Care Provider] -
[2017-08-16] MEDS: *HR* Enoxaparin 30 MG/0.3 ML SYRINGE SQ SCH (07:18)
[2017-08-16 07:26] VITALS: BP 128/76
[2017-08-16] MEDS: OXYCODONE Oral CONC 10 MG/0.5 ML ORAL.SYG SL PRN (09:02)
[2017-08-16] MEDS: Primidone 50 MG TABLET PO SCH (09:03)
[2017-08-16] MEDS: Multivit/Ca/Min/Fe/FA 1 TAB TABLET PO SCH (09:03)
[2017-08-16] MEDS: Ascorbic Acid 500 MG TABLET PO SCH ×2 (09:04→15:36)
[2017-08-16] MEDS ORDERED: Sennosides/Docusate Sodium TABLET PO SCH (13:30)
--- NOTE | 2017-08-16 14:27 | Discharge Summary ---
Orders not resulted at time of discharge: Pending orders 08/14/17 13:01 Culture,Sputum with Gram Stain [RM] Routine 08/16/17 13:28 EKG [ECG 12 lead ECG] [ECG] Stat Date of Encounter: 08/16/17 Time of Encounter: 13:30 - Discharge Diagnosis (1) Left displaced femoral neck fracture Priority: Primary Status: Acute (2) Hypothyroid Priority: Secondary Status: Chronic Qualifiers: Hypothyroidism type: unspecified Qualified Code(s): E03.9 - Hypothyroidism , unspecified (3) Iron deficiency anemia Priority: Secondary Status: Chronic Qualifiers: Iron deficiency anemia type: unspecified iron deficiency Qualified Code(s) : D50.9 - Iron deficiency anemia, unspecified (4) Mood disorder Priority: Secondary Status: Chronic Hospital course: Ms. Matthews is a 82 year old female with the above medical problems, who was transferred from [facility] for fall and left hip pain. CT left hip showed left femoral neck fracture. Orthopedics was consulted, patient underwent left hip hemiarthroplasty on 08/12/2017. Patient recovered well post surgery, noted to have a 3 g drop in hemoglobin, started on oral ferrous sulfate and vitamin C supplements. Physical and occupational therapy evaluation was consulted, recommend inpatient rehabilitation. Patient is noted to have a regular rate, EKG shows sinus rhythm with PACs and PVCs. She was noted to have low-grade postoperative fever, likely due to atelectasis. Chest x-ray showed no acute infiltrates. Urinalysis was suggestive of infection but urine culture showed no growth. Patient is doing well at this time although she has issues with urinary retention and is being discharged to rehabilitation with a Patel catheter, for a later voiding trial. She is passing flatus, although no bowel movements postoperatively. Plan of care discussed with patient and her family, medically stable for discharge. Discharge discussed with: patient, family - Time Spent with Patient Total time spent providing and/or coordinating discharge services: Greater than 30 minutes (45 min) - Discharge Medications Prescriptions: OXYCODONE Oral CONC [Oxycodone Oral Conc] 10 mg SL Q4H PRN 5 Days oral.syg PRN Reason: Severe Pain Home Medications: Butalbital/Acetaminophen [Butalbital-Acetaminophn 50-325] 1 tab PO Q12HR PRN [History] Escitalopram [Lexapro] 10 mg PO DAILY 08/11/17 [History] Furosemide [Lasix] 40 mg PO QAM PRN 08/11/17 [History] Levothyroxine [Synthroid] 50 mcg PO 0630 08/11/17 [History] Memantine [Namenda] 10 mg PO BID 08/11/17 [History] Omeprazole [PriLOSEC] 40 mg PO DAILY 08/11/17 [History] Primidone [Mysoline] 50 mg PO 0900 08/11/17 [History] Ascorbic Acid [Vitamin C] 500 mg PO BIDWM tablet 08/16/17 [Rx] Enoxaparin [Lovenox] 30 mg SQ Q12HCO syringe 08/16/17 [Rx] Ferrous Sulfate 325 mg PO BIDWM tablet 08/16/17 [Rx] MOM Conc [MILK OF MAGNESIA conc] 5 ml PO HS PRN ud.liq 08/16/17 [Rx] Multivit/Ca/Min/Fe/FA [Thera M Plus] 1 tab PO DAILY tablet 08/16/17 [Rx] OXYCODONE Oral CONC [Oxycodone Oral Conc] 10 mg SL Q4H PRN 5 Days oral.syg [Rx] Sennosides/Docusate Sodium [Senna Plus] 1 each PO BID tablet 08/16/17 [Rx] Allergies/Adverse Reactions: 3 Allergy/AdvReac Type Severity Reaction Status Date / Time No Known Allergies Allergy Verified 08/11/17 01:18 Date of admission: 08/10/17 23:22 Primary care physician: Donovan Coronado, Consults: 08/12/17 01:10 Consult to Nurse Navigator [CONS] Routine Comment: ortho navigator Consult to Occupational Therapy [CONS] Routine Comment: Evaluate, develop and implement POC Reason for Consult: total hip replacement Does patient have active BEDREST order?: No Is patient medically & hemodynamically stable?: Yes Consult to Physical Therapy [CONS] Routine Comment: Evaluate, develop and implement POC Reason for Consult: sena hip replacement weight bearing as tolerated Does patient have active BEDREST order?: No Is patient medically & hemodynamically stable?: Yes Consult to Revenue Stamp Clerk [CONS] Routine Reason for SW Consult: post op joint replacement RT Post Op Consult [CONS] Routine Discharging clinician: Monique Waller Anticipated date of discharge: 08/16/17 - Constitutional Vitals: Temp Pulse Resp BP Pulse Ox 98.3 F 73 14 128/76 96 08/16/17 08:20 08/16/17 08:20 08/16/17 08:20 08/16/17 07:00 08/16/17 08:20 General appearance: Present: A&O X 3, pleasant, answers questions appropriately - Cardiovascular Cardiovascular exam: Present: irregular rhythm, +S1, +S2. Absent: diastolic murmur, gallop, rubs, systolic murmur - Patient Status Disposition: Transfer SNF Condition: Fair Functional capacity at discharge: uses cane/walker Overall status at discharge: patient is progressing back to baseline - Discharge Instructions Follow Up With: Donovan Coronado MD [Primary Care Provider] - Additional Instructions: F/up with [facility] in 1-2 weeks - Diet and Activity Activity: as per physical therapy Diet: low fat, low cholesterol, low salt diet - VTE Documentation of Mechanical Device: Venous foot pump, device
--- NOTE | 2017-08-16 14:40 | Physician Discharge Referral ---
ExtendedCare Referral Info [facility] To[facility] Provider in Charge: Monique Waller Provider in Charge after Transfer: PCP Institutional Level of Care: Intermediate - Diagnosis (1) Left displaced femoral neck fracture Priority: Primary Status: Acute (2) Hypothyroid Priority: Secondary Status: Chronic (3) Iron deficiency anemia Priority: Secondary Status: Chronic (4) Mood disorder Priority: Secondary Status: Chronic Expected Duration of Placement: 2 weeks Prognosis: Fair Aware of Diagnosis: Patient Aware of Prognosis: Patient - Transfer Medications Prescriptions: OXYCODONE Oral CONC [Oxycodone Oral Conc] 10 mg SL Q4H PRN 5 Days oral.syg PRN Reason: Severe Pain Home Medications: Butalbital/Acetaminophen [Butalbital-Acetaminophn 50-325] 1 tab PO Q12HR PRN [History] Escitalopram [Lexapro] 10 mg PO DAILY 08/11/17 [History] Furosemide [Lasix] 40 mg PO QAM PRN 08/11/17 [History] Levothyroxine [Synthroid] 50 mcg PO 0630 08/11/17 [History] Memantine [Namenda] 10 mg PO BID 08/11/17 [History] Omeprazole [PriLOSEC] 40 mg PO DAILY 08/11/17 [History] Primidone [Mysoline] 50 mg PO 0900 08/11/17 [History] Ascorbic Acid [Vitamin C] 500 mg PO BIDWM tablet 08/16/17 [Rx] Enoxaparin [Lovenox] 30 mg SQ Q12HCO syringe 08/16/17 [Rx] Ferrous Sulfate 325 mg PO BIDWM tablet 08/16/17 [Rx] MOM Conc [MILK OF MAGNESIA conc] 5 ml PO HS PRN ud.liq 08/16/17 [Rx] Multivit/Ca/Min/Fe/FA [Thera M Plus] 1 tab PO DAILY tablet 08/16/17 [Rx] OXYCODONE Oral CONC [Oxycodone Oral Conc] 10 mg SL Q4H PRN 5 Days oral.syg [Rx] Sennosides/Docusate Sodium [Senna Plus] 1 each PO BID tablet 08/16/17 [Rx] Allergies/Adverse Reactions: 3 Allergy/AdvReac Type Severity Reaction Status Date / Time No Known Allergies Allergy Verified 08/11/17 01:18 - Respiratory Orders Smoking Cessation: Smoking cessation has been advised. For more information, call the [place] Tobacco Quit Line at 0-940-NSOO-NOW. - Advance Directives Living Will: Yes Power of Network Firewall Engineer: Yes Code Status: DNR-Arrest/Don't Intubate - Mobility Orders Ambulate - Rehabiliation Orders Rehab Potential: Fair Rehab Orders: ROM Exercises, Evaluation for Physical Therapy, Evaluation for Occupational Therapy - Diet Orders Cardiac CERTIFICATION: I certify that the transfer of the above named patient to an Extended Care Facility is necessary for the continuing treatment of the diagnosis listed. The above information is true and accurate reflection of patient's current condition. Confidential - Redisclosure prohibited without a patient's written consent.
--- NOTE | 2017-08-16 16:43 | Orthopedics Progress Note ---
Date of Encounter: 08/16/17 Time of Encounter: 12:20 - Assessment and Plan (1) Left displaced femoral neck fracture Current Visit: Yes Status: Acute POD#4 s/p Left hip hemiarthroplasty 08/12/17 Continue with PT/OT, WBAT. Continue pain control per hospitalist. Ice to hip as needed. Continue hip precautions No fevers today. Likely DC to ECF today. Will require DVT prophylaxis - lovenox for 2 weeks then aspirin for 4 weeks Will follow up with Shabana Valenzuela PA-C in [facility] office on 08/28/17 at 9am Orthopedics will sign off at this time but please call with any future questions. Subjective Principal diagnosis: POD#4 s/p Left hip hemiarthroplasty 08/12/17 Interval history: Patient doing well, alert and eating lunch. She continues to participate in therapy this morning stating it went well. Pain well controlled at this time. States she continues to have difficulty with urinating. She was started on abx for UTI yesterday. Objective Vital signs: Vital Signs Temp Pulse Resp BP Pulse Ox 08/16/17 08:20 98.3 F 73 14 96 08/16/17 07:00 98.5 F 73 16 128/76 98 08/16/17 03:45 98.9 F 78 14 122/78 97 08/16/17 00:06 98.8 F 88 16 120/57 96 08/15/17 20:28 99.4 F 83 18 126/79 98 Intake and Output 08/16/17 08/16/17 08/16/17 07:59 15:59 23:59 Intake Total 0 / 0 570 / 570 Output Total 425 / 425 250 / 250 Balance -425 / -425 320 / 320 Intake: Oral 0 / 0 570 / 570 Output: Urine 0 / 0 Straight Cath 425 / 425 Catheter 250 / 250 Other: Meal Lunch Percent of Meal Consumed 50% Weight 69.5 kg Patient Weight 08/16/17 23:59 Weight 69.5 kg Incision: clean and dry (dressings c/d/i with no visible drainage or surrounding erythema. calf nontender to palpation, good dorsiflexion of fook. grossly NV intact. ) - Labs CBC & BMP: 08/14/17 13:25 08/13/17 05:10 Labs: Abnormal lab results RBC 2.87 M/mcL (3.82-4.97) L 08/14/17 13:25 Hgb 8.9 g/dL (11.5-15.4) L 08/14/17 13:25 Hct 28.0 % (35.3-44.9) L 08/14/17 13:25 MPV 8.9 fL (9.4-12.4) L 08/14/17 13:25 Sodium 135 mEq/L (136-145) L 08/13/17 05:10 Est GFR (Non-Af Amer) 52 (> 60) L 08/13/17 05:10 Glucose 118 mg/dL (70-105) H 08/13/17 05:10 Calcium 8.5 mg/dL (8.6-10.3) L 08/13/17 05:10 25-OH Vitamin D Total 21 ng/mL (30-80) L 08/11/17 14:29 Urine Clarity Hazy (Clear) A 08/14/17 13:50 Urine Protein 100 mg/dL (Neg-Trace) H 08/14/17 13:50 Urine Ketones 15 mg/dL (Negative) H 08/14/17 13:50 Ur Leukocyte Esterase Moderate (Negative) H 08/14/17 13:50 Urine Microscopic WBC 15-30 per hpf (0-3) H 08/14/17 13:50 Ur Squamous Epith Cells Moderate per lpf (None-Few) H 08/14/17 13:50 Ur Culture Indicated? YES (NO) A 08/14/17 13:50 - VTE Documentation of Mechanical Device: Venous foot pump, device Consult Discharge Plan - Plan Additional Instructions: F/up with [facility] in 1-2 weeks Referrals: Donovan Coronado MD [Primary Care Provider] - Prescriptions: OXYCODONE Oral CONC [Oxycodone Oral Conc] 10 mg SL Q4H PRN 5 Days oral.syg PRN Reason: Severe Pain
--- NOTE | 2017-08-17 07:04 | Electrocardiograph Report ---
[place] [id number] Test Date: 2017-08-16 Pat Name: Linda Matthews Department: 114 Room: [facility] Gender: F Price Economist: : 1935 Requested By: Monique Waller Order Number: [id number] Reading MD: Librado Montelongo MD Measurements Intervals [place] Rate: 91 P: 110 WI: 157 QRS: -2 QRSD: 74 T: 59 QT: 306 QTc: 355 Interpretive Statements SINUS RHYTHM WITH OCCASIONAL SUPRAVENTRICULAR PREMATURE COMPLEXES LOW QRS VOLTAGE IN PRECORDIAL LEADS BASELINE ARTIFACT COMPLICATES ACCURATE INTERPRETATION Electronically Signed On 08-17-2017 7:02:10 EDT by Librado Montelongo MD
== END 2017-08-16 17:10 | DRG 470 ==
LOC: SUATTDRO 23:22 → 3NENU 23:22
PROVIDERS: ADMIT Internal Medicine; ATTEND Internal Medicine

== ENCOUNTER 2019-01-07 17:55 | Inpatient (IN) ==
[2019-01-07] MEDS ORDERED: Ondansetron 4 MG/2 ML VIAL IVP PRN (21:19)
[2019-01-07] MEDS ORDERED: *HR* HYDROcodone/Acet 5/325 mg TABLET PO PRN (21:19)
[2019-01-07] MEDS ORDERED: Naloxone 0.4 MG/ML INJ IVP PRN (21:19)
[2019-01-07] MEDS ORDERED: Acetaminophen 325 MG TABLET PO PRN (21:19)
[2019-01-07] MEDS ORDERED: 0.9 % Sodium Chloride 1,000 ML IVC SCH (21:30)
[2019-01-07 22:12] LABS: Prothrombin Time 11.2 Seconds (9.4-12.1)
[2019-01-07 22:15] LABS: Activated Partial Thrombo Time 31.1 Seconds (26.0-36.0)
[2019-01-07 22:44] LABS: Calcium 8.6 mg/dL (8.6-10.3); Potassium 3.5 mEq/L (3.5-5.1)
[2019-01-08 05:14] LABS: Basophils % 0.3 %; Eosinophils # 0.1 K/mcL (0.0-0.6); Hematocrit 31.8 % (35.3-44.9); Hemoglobin 10.2 g/dL (11.5-15.4); Immature Granulocytes % 0.4 % (0-4); Lymphocytes # 0.6 K/mcL (0.6-4.6); Mean Corpuscular HGB Conc 32.1 g/dL (31.6-35.5); Mean Corpuscular Hemoglobin 30.8 pg (28.0-33.3); Mean Corpuscular Volume 96.1 fL (83.0-100.0); Mean Platelet Volume 9.3 fL (9.4-12.4); Monocytes # 0.7 K/mcL (0.0-1.3); Monocytes % 9.1 %; Neutrophils # 6.3 K/mcL (1.6-8.9); Platelet Count 174 K/mcL (140-400); Red Blood Count 3.31 M/mcL (3.82-4.97); Red Cell Distribution Width 14.1 % (11.5-14.5); Segmented Neutrophils % 81.2 %; White Blood Count 7.8 K/mcL (4.3-11.1)
[2019-01-08 05:31] LABS: Albumin 3.6 g/dL (3.5-5.7); Albumin/Globulin Ratio 1.5 (1.1-2.2); Bilirubin,Total 0.4 mg/dL (0.3-1.0); Calcium 8.6 mg/dL (8.6-10.3); Globulin 2.4 g/dL (2.4-3.5); Potassium 3.6 mEq/L (3.5-5.1)
[2019-01-08] MEDS ORDERED: *HR* Heparin 5,000 UNIT/ML VIAL SQ SCH (06:00)
[2019-01-08 09:33] LABS: Magnesium 2.2 mg/dL (1.6-2.6)
[2019-01-08 12:14] LABS: Phosphorous 3.1 mg/dL (2.7-4.5)
[2019-01-08 12:39] LABS: Folate > 22.3 ng/mL (3.0-16.0); Vitamin B12 274 pg/mL (250-1100)
[2019-01-08 14:17] LABS: Bilirubin,Urine Negative (Negative); Blood,Urine Negative (Negative); Clarity,Urine Clear (Clear); Color,Urine Yellow (Yellow); Glucose,Urine (UA) Normal (Normal); Ketones,Urine Trace mg/dL (Negative); Leukocyte Esterase,Urine Trace (Negative); Nitrite,Urine Negative (Negative); Protein,Urine Trace mg/dL (Neg-Trace); Specific Gravity,Urine 1.017 (1.010-1.025); Urobilinogen,Urine Normal (Normal)
[2019-01-08 14:19] LABS: Bacteria,Urine None Seen per hpf (None-Few); Hyaline Casts,Urine None Seen per lpf (None-Few); Squamous Epithelial Cell,Urine Moderate per lpf (None-Few); WBC,Urine 0-3 per hpf (0-3)
[2019-01-08] MEDS ORDERED: Ethanol\\Acetic Acid\\Na Ace\\Ben 1,000 ML IRRIG.SOLN IR ONE (15:55)
[2019-01-08] MEDS ORDERED: Vancomycin 1,000 MG VIAL ONE (16:11)
[2019-01-08] MEDS ORDERED: *HR* Midazolam HCl 2 MG/2 ML VIAL ONE (16:52)
[2019-01-08] MEDS ORDERED: Acetaminophen IV 1,000 MG/100 ML INFUS..BTL ONE (17:17)
[2019-01-08] MEDS ORDERED: Lidocaine -MPF 2% 2 ML VIAL ONE (17:26)
[2019-01-08] MEDS ORDERED: Propofol 500 MG/50 ML INFUS..BTL ONE (17:43)
[2019-01-08] MEDS ORDERED: *HR* FentaNYL (PF) 100 MCG/2 ML VIAL ONE (18:20)
[2019-01-08] MEDS ORDERED: Ondansetron 4 MG/2 ML VIAL ONE (18:39)
[2019-01-08] MEDS ORDERED: *HR* Phenylephrine 10 MG/ML VIAL ONE (18:39)
[2019-01-08] MEDS ORDERED: Perflutren Lipid Microsphere 1.3 ML in 0.9 % Sodium Chloride 8.7 ML IVP ONE ×2 (19:06→20:39)
[2019-01-08] MEDS ORDERED: Acetaminophen 325 MG TABLET PO PRN (20:39)
[2019-01-08] MEDS ORDERED: 0.9 % Sodium Chloride 1,000 ML IVC SCH (20:39)
[2019-01-08] MEDS ORDERED: Naloxone 0.4 MG/ML INJ IVP PRN (20:39)
[2019-01-08] MEDS ORDERED: Ondansetron 4 MG/2 ML VIAL IVP PRN (20:39)
[2019-01-09] MEDS ORDERED: 0.9 % Sodium Chloride 1,000 ML ONE (02:49)
[2019-01-09 05:13] LABS: Basophils % 0.4 %; Eosinophils # 0.1 K/mcL (0.0-0.6); Eosinophils % 1.1 %; Hematocrit 27.7 % (35.3-44.9); Hemoglobin 8.8 g/dL (11.5-15.4); Immature Granulocytes % 0.5 % (0-4); Lymphocytes # 0.6 K/mcL (0.6-4.6); Lymphocytes % 7.6 %; Mean Corpuscular HGB Conc 31.8 g/dL (31.6-35.5); Mean Corpuscular Hemoglobin 30.8 pg (28.0-33.3); Mean Corpuscular Volume 96.9 fL (83.0-100.0); Mean Platelet Volume 9.1 fL (9.4-12.4); Monocytes # 0.6 K/mcL (0.0-1.3); Monocytes % 8.4 %; Neutrophils # 6.2 K/mcL (1.6-8.9); Platelet Count 157 K/mcL (140-400); Red Blood Count 2.86 M/mcL (3.82-4.97); Red Cell Distribution Width 13.9 % (11.5-14.5); White Blood Count 7.5 K/mcL (4.3-11.1)
[2019-01-09 05:30] LABS: BUN/Creatinine Ratio 19 (6-26); Blood Urea Nitrogen 20 mg/dL (8-23); Carbon Dioxide 25 mEq/L (23-29); Chloride 107 mEq/L (98-107); Glucose 88 mg/dL (70-105); Osmolality,Calculated 292 (280-300); Potassium 3.6 mEq/L (3.5-5.1); Sodium 140 mEq/L (136-145); eGFR For African Americans > 60 (> 60); eGFR For Non-African Americans 50 (> 60)
[2019-01-09] MEDS ORDERED: *HR* Heparin 5,000 UNIT/ML VIAL SQ SCH (06:00)
[2019-01-09] MEDS ORDERED: ceFAZolin 2,000 MG in D5% in Water 100 ML IVPB SCH (08:00)
[2019-01-09] MEDS ORDERED: ceFAZolin 2,000 MG in 0.9 % Sodium Chloride 100 ML IVPB SCH (08:30)
[2019-01-09] MEDS: *HR* HYDROcodone/Acet 5/325 mg TABLET PO PRN (08:55)
[2019-01-09] MEDS ORDERED: Primidone 50 MG TABLET PO SCH ×2 (09:00→14:00)
[2019-01-09 09:13] LABS: Estimated Average Glucose 114 mg/dl
[2019-01-09 09:33] LABS: Hematocrit 28.3 % (35.3-44.9); Hemoglobin 9.1 g/dL (11.5-15.4)
[2019-01-09] MEDS: Primidone 50 MG TABLET PO SCH ×2 (11:57→21:13)
[2019-01-09] MEDS: ceFAZolin 2,000 MG in 0.9 % Sodium Chloride 100 ML IVPB SCH ×2 (16:36→23:45)
[2019-01-09 17:46] LABS: Hematocrit 28.1 % (35.3-44.9)
[2019-01-09] MEDS: Aspirin Enteric Coated 325 MG Tablet PO SCH (17:48)
[2019-01-09] MEDS: *HR* LORazepam 0.5 MG TABLET PO SCH (21:13)
[2019-01-09] MEDS: QUEtiapine Fumarate 25 MG TABLET PO SCH (21:13)
[2019-01-09 23:41] LABS: Hematocrit 22.9 % (35.3-44.9)
[2019-01-09 23:42] LABS: Hemoglobin 7.4 g/dL (11.5-15.4)
[2019-01-10 04:57] LABS: Basophils % 0.3 %; Eosinophils # 0.1 K/mcL (0.0-0.6); Eosinophils % 1.2 %; Hematocrit 24.4 % (35.3-44.9); Hemoglobin 7.7 g/dL (11.5-15.4); Immature Granulocytes % 0.4 % (0-4); Lymphocytes # 0.8 K/mcL (0.6-4.6); Lymphocytes % 10.8 %; Mean Corpuscular HGB Conc 31.6 g/dL (31.6-35.5); Mean Corpuscular Hemoglobin 30.9 pg (28.0-33.3); Mean Platelet Volume 9.3 fL (9.4-12.4); Monocytes # 0.7 K/mcL (0.0-1.3); Monocytes % 9.3 %; Neutrophils # 5.7 K/mcL (1.6-8.9); Platelet Count 142 K/mcL (140-400); Red Blood Count 2.49 M/mcL (3.82-4.97); Red Cell Distribution Width 13.8 % (11.5-14.5); White Blood Count 7.3 K/mcL (4.3-11.1)
[2019-01-10 05:15] LABS: Calcium 7.8 mg/dL (8.6-10.3); Potassium 3.6 mEq/L (3.5-5.1)
[2019-01-10 05:23] LABS: % Iron Saturation 4 % (15-50); Iron 10 mcg/dL (50-170); Transferrin 165 mg/dL (203-362)
[2019-01-10 05:35] LABS: Ferritin 42 ng/mL (10-120)
[2019-01-10] MEDS ORDERED: Ergocalciferol (VIT D2) 50,000 UNIT (1.25MG) CAP PO SCH (08:00)
[2019-01-10] MEDS: ceFAZolin 2,000 MG in 0.9 % Sodium Chloride 100 ML IVPB SCH (08:35)
[2019-01-10] MEDS: Primidone 50 MG TABLET PO SCH ×2 (08:35→20:13)
[2019-01-10] MEDS: *HR* LORazepam 0.5 MG TABLET PO SCH ×2 (08:35→20:13)
[2019-01-10] MEDS ORDERED: Primidone 50 MG TABLET PO SCH (09:00)
[2019-01-10] MEDS: Iron Sucrose Complex 200 MG in 0.9 % Sodium Chloride 100 ML IVPB SCH (09:17)
[2019-01-10] MEDS: *HR* HYDROcodone/Acet 5/325 mg TABLET PO PRN (11:04)
[2019-01-10] MEDS ORDERED: ceFAZolin 1,000 MG in Water for inj. (sterile) 10 ML IVP SCH (16:00)
[2019-01-10] MEDS: Aspirin Enteric Coated 325 MG Tablet PO SCH (17:52)
[2019-01-10] MEDS: QUEtiapine Fumarate 25 MG TABLET PO SCH (20:13)
[2019-01-10] MEDS: ceFAZolin 1,000 MG in Water for inj. (sterile) 10 ML IVP SCH (20:13)
[2019-01-11 05:20] LABS: Basophils % 0.3 %; Eosinophils # 0.3 K/mcL (0.0-0.6); Eosinophils % 4.1 %; Hemoglobin 7.7 g/dL (11.5-15.4); Immature Granulocytes % 0.4 % (0-4); Lymphocytes # 0.8 K/mcL (0.6-4.6); Lymphocytes % 11.4 %; Mean Corpuscular HGB Conc 32.1 g/dL (31.6-35.5); Mean Corpuscular Hemoglobin 31.2 pg (28.0-33.3); Mean Corpuscular Volume 97.2 fL (83.0-100.0); Mean Platelet Volume 9.4 fL (9.4-12.4); Monocytes # 0.6 K/mcL (0.0-1.3); Monocytes % 9.3 %; Neutrophils # 5.1 K/mcL (1.6-8.9); Platelet Count 194 K/mcL (140-400); Red Blood Count 2.47 M/mcL (3.82-4.97); Red Cell Distribution Width 14.2 % (11.5-14.5); Segmented Neutrophils % 74.5 %; White Blood Count 6.8 K/mcL (4.3-11.1)
[2019-01-11 05:45] LABS: Magnesium 2.1 mg/dL (1.6-2.6); Potassium 3.9 mEq/L (3.5-5.1)
[2019-01-11] MEDS: *HR* LORazepam 0.5 MG TABLET PO SCH ×2 (10:04→21:23)
[2019-01-11] MEDS: Primidone 50 MG TABLET PO SCH ×2 (10:04→21:23)
[2019-01-11] MEDS: Iron Sucrose Complex 200 MG in 0.9 % Sodium Chloride 100 ML IVPB SCH (10:05)
[2019-01-11] MEDS: ceFAZolin 1,000 MG in Water for inj. (sterile) 10 ML IVP SCH (10:06)
[2019-01-11] MEDS: Aspirin Enteric Coated 325 MG Tablet PO SCH (17:48)
[2019-01-11] MEDS: QUEtiapine Fumarate 25 MG TABLET PO SCH (21:23)
[2019-01-12] MEDS: *HR* LORazepam 0.5 MG TABLET PO SCH ×2 (07:45→20:43)
[2019-01-12] MEDS: Primidone 50 MG TABLET PO SCH ×2 (07:45→20:41)
[2019-01-12 10:05] LABS: Basophils % 0.4 %; Eosinophils # 0.4 K/mcL (0.0-0.6); Eosinophils % 5.2 %; Hematocrit 25.9 % (35.3-44.9); Immature Granulocytes % 0.3 % (0-4); Lymphocytes # 0.8 K/mcL (0.6-4.6); Mean Corpuscular HGB Conc 30.9 g/dL (31.6-35.5); Mean Corpuscular Hemoglobin 30.9 pg (28.0-33.3); Mean Platelet Volume 9.2 fL (9.4-12.4); Monocytes # 0.5 K/mcL (0.0-1.3); Monocytes % 6.8 %; Neutrophils # 5.4 K/mcL (1.6-8.9); Platelet Count 266 K/mcL (140-400); Red Blood Count 2.59 M/mcL (3.82-4.97); Red Cell Distribution Width 14.6 % (11.5-14.5); Segmented Neutrophils % 76.3 %; White Blood Count 7.1 K/mcL (4.3-11.1)
[2019-01-12 10:36] LABS: Calcium 8.5 mg/dL (8.6-10.3); Magnesium 2.1 mg/dL (1.6-2.6); Potassium 3.9 mEq/L (3.5-5.1)
[2019-01-12] MEDS: Aspirin Enteric Coated 325 MG Tablet PO SCH (19:25)
[2019-01-12] MEDS: *HR* HYDROcodone/Acet 5/325 mg TABLET PO PRN (19:25)
[2019-01-12] MEDS: QUEtiapine Fumarate 25 MG TABLET PO SCH (20:42)
[2019-01-13] MEDS: Primidone 50 MG TABLET PO SCH ×2 (08:11→20:51)
[2019-01-13] MEDS: *HR* LORazepam 0.5 MG TABLET PO SCH ×2 (08:11→20:51)
[2019-01-13] MEDS: Aspirin Enteric Coated 325 MG Tablet PO SCH (17:08)
[2019-01-13] MEDS: QUEtiapine Fumarate 25 MG TABLET PO SCH (20:50)
[2019-01-14 05:50] LABS: Basophils % 0.3 %; Eosinophils # 0.4 K/mcL (0.0-0.6); Eosinophils % 6.1 %; Hematocrit 22.7 % (35.3-44.9); Hemoglobin 7.2 g/dL (11.5-15.4); Immature Granulocytes % 0.6 % (0-4); Lymphocytes # 1.2 K/mcL (0.6-4.6); Lymphocytes % 17.6 %; Mean Corpuscular HGB Conc 31.7 g/dL (31.6-35.5); Mean Corpuscular Volume 100.9 fL (83.0-100.0); Mean Platelet Volume 8.5 fL (9.4-12.4); Monocytes # 0.7 K/mcL (0.0-1.3); Monocytes % 10.6 %; Neutrophils # 4.5 K/mcL (1.6-8.9); Platelet Count 265 K/mcL (140-400); Red Blood Count 2.25 M/mcL (3.82-4.97); Red Cell Distribution Width 14.6 % (11.5-14.5); Segmented Neutrophils % 64.8 %; White Blood Count 6.9 K/mcL (4.3-11.1)
[2019-01-14 06:08] LABS: Calcium 8.3 mg/dL (8.6-10.3); Magnesium 2.1 mg/dL (1.6-2.6); Potassium 4.7 mEq/L (3.5-5.1)
[2019-01-14 08:25] LABS: Basophils % 0.4 %; Eosinophils # 0.5 K/mcL (0.0-0.6); Eosinophils % 5.9 %; Hematocrit 23.3 % (35.3-44.9); Hemoglobin 7.6 g/dL (11.5-15.4); Immature Granulocytes % 0.8 % (0-4); Lymphocytes # 1.2 K/mcL (0.6-4.6); Lymphocytes % 15.4 %; Mean Corpuscular HGB Conc 32.6 g/dL (31.6-35.5); Mean Corpuscular Hemoglobin 32.8 pg (28.0-33.3); Mean Corpuscular Volume 100.4 fL (83.0-100.0); Mean Platelet Volume 8.6 fL (9.4-12.4); Monocytes # 0.8 K/mcL (0.0-1.3); Neutrophils # 5.2 K/mcL (1.6-8.9); Platelet Count 258 K/mcL (140-400); Red Blood Count 2.32 M/mcL (3.82-4.97); Segmented Neutrophils % 67.5 %; White Blood Count 7.6 K/mcL (4.3-11.1)
[2019-01-14] MEDS: Primidone 50 MG TABLET PO SCH ×2 (08:32→20:37)
[2019-01-14] MEDS: *HR* LORazepam 0.5 MG TABLET PO SCH ×2 (08:32→20:36)
[2019-01-14] MEDS: *HR* HYDROcodone/Acet 5/325 mg TABLET PO PRN (11:46)
[2019-01-14] MEDS: Aspirin Enteric Coated 325 MG Tablet PO SCH (18:01)
[2019-01-14] MEDS: QUEtiapine Fumarate 25 MG TABLET PO SCH (20:37)
[2019-01-15 06:35] LABS: Basophils % 0.4 %; Eosinophils # 0.4 K/mcL (0.0-0.6); Eosinophils % 5.1 %; Hematocrit 23.6 % (35.3-44.9); Hemoglobin 7.4 g/dL (11.5-15.4); Immature Granulocytes % 1.3 % (0-4); Lymphocytes # 1.2 K/mcL (0.6-4.6); Mean Corpuscular HGB Conc 31.4 g/dL (31.6-35.5); Mean Corpuscular Hemoglobin 31.6 pg (28.0-33.3); Mean Corpuscular Volume 100.9 fL (83.0-100.0); Mean Platelet Volume 8.5 fL (9.4-12.4); Monocytes # 0.9 K/mcL (0.0-1.3); Monocytes % 11.7 %; Neutrophils # 4.9 K/mcL (1.6-8.9); Platelet Count 298 K/mcL (140-400); Red Blood Count 2.34 M/mcL (3.82-4.97); Red Cell Distribution Width 15.4 % (11.5-14.5); Segmented Neutrophils % 65.5 %; White Blood Count 7.5 K/mcL (4.3-11.1)
[2019-01-15 06:58] LABS: Calcium 8.2 mg/dL (8.6-10.3); Magnesium 2.3 mg/dL (1.6-2.6); Potassium 5.2 mEq/L (3.5-5.1)
[2019-01-15] MEDS ORDERED: Furosemide 20 MG/2 ML VIAL IVP ONE (08:04)
[2019-01-15] MEDS: *HR* LORazepam 0.5 MG TABLET PO SCH (09:48)
[2019-01-15] MEDS: Primidone 50 MG TABLET PO SCH (09:48)
[2019-01-15 10:37] VITALS: BP 99/54
== END 2019-01-15 15:46 | DRG 469 ==
LOC: 3ANU 19:52 → SUATTDRO 19:52
PROVIDERS: ADMIT Internal Medicine; ATTEND Pharmacist